=== PATIENT | male | born 1945 | race Caucasian/White ===

== ENCOUNTER 2021-01-22 19:06 | Inpatient (IN) | payer MEDICARE, BC ==
[~2021-01-22] VITALS: Ht 152.4 cm; Wt 76.8 kg
[2021-01-22] MEDS ORDERED: BAYER CHEWABLE81 MG PO (19:09)
[2021-01-22] MEDS ORDERED: LIPITOR20 MG PO (19:10)
[2021-01-22] MEDS ORDERED: HYDROCHLOROTH12.5 M1 PO (19:10)
[2021-01-22] MEDS ORDERED: PLAVIX75 MG PO (19:10)
[2021-01-22] MEDS ORDERED: OMNICEF300 MG PO (19:10)
[2021-01-22] MEDS ORDERED: PEPCID40 MG PO (19:10)
[2021-01-22] MEDS ORDERED: ZANAFLEX2 M1 PO (19:11)
[2021-01-22] MEDS ORDERED: COZAAR50 MG PO (19:11)
[2021-01-22] MEDS ORDERED: METOPROLOL TART25 MG PO (19:11)
[2021-01-22] MEDS ORDERED: COZAAR25 MG PO (19:11)
[2021-01-22 20:00] VITALS: BP 181/74
[2021-01-22 21:00] VITALS: BP 179/81
[2021-01-23 05:02] VITALS: BP 168/69
--- NOTE | 2021-01-23 06:30 | NUR ---
BEDSIDE REPORT PATIENT RESTING WITH SPOUSE AT BEDSIDE. RESP EVEN AND UNLABORED. CHEST PAIN HAVE SUBSIDED AT THIS TIME. TELE IN PLACE. IV TO LEFT FOREARM.
[2021-01-23 06:31] LABS: ALBUMIN 3.1 g/dL (3.4-5.0); ANION GAP 12.1 mmol/L (8-16); BILIRUBIN - TOTAL 0.52 mg/dL (0.2-1.3); CALCIUM 8.8 mg/dL (8.5-10.1); CARBON DIOXIDE 29.2 mmol/L (21.0-32.0); CHOL - HDL RATIO 2.9 ratio (2.3-4.9); CREATININE - SERUM 1.7 mg/dL (0.6-1.3); LDL-HDL RATIO 1.6 ratio (1.5-3.5); MAGNESIUM - SERUM 1.8 mg/dL (1.8-2.4); PHOSPHOROUS 3.4 mg/dL (2.5-4.9); POTASSIUM - SERUM 3.3 mmol/L (3.5-5.1); PROTEIN - SERUM 6.9 g/dL (6.4-8.2)
[2021-01-23 06:35] LABS: APTT 26.8 SECONDS (22.8-39.4); INR 1.11 (0.85-1.17); PROTIME 13.2 SECONDS (11.6-15.0)
--- NOTE | 2021-01-23 06:43 | NUR ---
PT DENIES CP BUT DOES C/O OF ABD PAIN THAT COMES AND GOES. DENIES N/V OR OTHER SYMPTOMS. PAIN STILL PRESENT BUT DULL. AT BEDSIDE. SPOUSE STATED THAT THEY CAME TO THE ER EARLIER IN THE WEEK FOR A "HIGH FEVER", SR ON TELEMETRY. WILL CTM.
[2021-01-23 07:29] LABS: BASOPHILS 0.1 % (0-2); EOSINOPHILS 0 % (0-7); HEMATOCRIT 41.2 % (42.0-54.0); HEMOGLOBIN 13.6 g/dL (13.5-17.5); LYMPHOCYTES 5.4 % (15-50); MCH 29.5 pg (26.0-34.0); MCHC 32.9 g/dL (31.0-37.0); MCV 89.7 fL (80.0-100.0); MEAN PLATELET VOLUME 8.3 fL (7.4-10.4); MONOCYTES 7.4 % (2-11); NEUTROPHILS 87.1 % (40-80); PLATELET COUNT 239 10x3/uL (130-400); RDW 13.6 % (11.5-14.5); WBC 8.8 10x3/uL (4.8-10.8)
[2021-01-23 07:37] VITALS: Ht 152.4 cm; Wt 76.8 kg
[2021-01-23 08:06] VITALS: BP 157/68
--- NOTE | 2021-01-23 08:11 | NUR ---
PATIENT AWAKE AND ALERT. NO CURRENT COMPLAINTS. IV TO LEFT AC PATENT LOCKED. RESP EVEN AND UNLABORED. ON ROOM AIR 99. MOSTLY COMPLAINS OF UPPER GASTRIC PRESSURE. ABDOMEN DISTENDED SLIGHTLY WITH NON TENDERNESS. LUNG SOUNDS CLEAR. HEART SOUNDS REGULAR.
[2021-01-23 12:50] VITALS: BP 145/63
[2021-01-23] MEDS ORDERED: NITROQUICK0.4 MG SL (15:30)
[2021-01-23 15:32] VITALS: BP 117/58
[2021-01-23] MEDS ORDERED: CLONIDINE HCL0.1 MG PO (15:32)
== END 2021-01-23 17:24 | disposition home or self-care (01) | DRG 313 ==
LOC: D.ER 19:06 → D.M2 20:06
PROVIDERS: Family Medicine; ADMIT Emergency Medicine; ATTEND Emergency Medicine
DX: R07.9 Chest pain, unspecified (principal); I10 Essential (primary) hypertension; M19.90 Unspecified osteoarthritis, unspecified site; E78.5 Hyperlipidemia, unspecified; N28.9 Disorder of kidney and ureter, unspecified; R77.8 Other specified abnormalities of plasma proteins; Z86.711 Personal history of pulmonary embolism; Z86.73 Personal history of transient ischemic attack (TIA), and cerebral infarction without residual deficits